=== PATIENT | female | born 1960 | race Asian ===

== ENCOUNTER 2018-07-06 09:35 | Outpatient (CLI) | payer OTHER ==
[~2018-07-06 09:35] MED LIST: CIPRO500 MG PO; IBUPROFEN800 MG PO; PYRIDIUM200 MG PO
== END 2018-07-06 09:46 | disposition home or self-care (01) ==
LOC: LAB 09:35
DX: D64.89 Other specified anemias (principal); E78.2 Mixed hyperlipidemia; E03.8 Other specified hypothyroidism; N39.0 Urinary tract infection, site not specified; E55.9 Vitamin D deficiency, unspecified; K92.1 Melena

== ENCOUNTER 2018-09-09 11:13 | Outpatient (CLI) | payer OTHER | END 2018-09-09 13:32 | disposition home or self-care (01) | LOC: LAB 11:13 | DX: N39.0 Urinary tract infection, site not specified (principal) ==

== ENCOUNTER 2018-09-19 12:57 | Outpatient (CLI) | payer OTHER | END 2018-09-19 13:06 | disposition home or self-care (01) | LOC: NUCLEAR 12:57 | DX: M81.0 Age-related osteoporosis without current pathological fracture (principal) ==

== ENCOUNTER → 2022-07-27 | Outpatient (CLI) | payer OTHER | END | disposition home or self-care (01) | LOC: RAD 13:48 | PROVIDERS: ATTEND Internal Medicine | DX: J01.90 Acute sinusitis, unspecified (principal) ==

== ENCOUNTER 2022-07-28 07:36 | Outpatient (CLI) | payer OTHER | END 2022-07-28 08:00 | disposition home or self-care (01) | LOC: SONOGRAMA 07:36 | PROVIDERS: ATTEND Internal Medicine | DX: K76.0 Fatty (change of) liver, not elsewhere classified (principal) ==

== ENCOUNTER 2022-08-04 08:05 | Outpatient (CLI) | payer OTHER | END 2022-08-04 08:08 | disposition home or self-care (01) | LOC: NUCLEAR 08:05 | PROVIDERS: ATTEND Internal Medicine | DX: I65.29 Occlusion and stenosis of unspecified carotid artery (principal); M85.80 Other specified disorders of bone density and structure, unspecified site; E78.2 Mixed hyperlipidemia; I10 Essential (primary) hypertension ==